=== PATIENT | female | born 1980 | race American Indian/Alaskan Native ===

== ENCOUNTER 2016-07-31 05:53 | Day surgery (SDC) | payer MEDICARE ==
[~2016-07-31 05:53] MED LIST: ANCEF/STERILE WATER 2 GM/20 ML 2 GM/20 ML SYRINGE IV NR; LOVENOX SUB-Q NR; TRANSDERM-SCOP TD SCH
[2016-07-31] MEDS ORDERED: LACTATED RINGERS 1,000 ML IV SCH (06:00)
[2016-07-31] MEDS ORDERED: ANCEF/STERILE WATER 2 GM/20 ML 2 GM/20 ML SYRINGE IV NR (06:00)
[2016-07-31] MEDS ORDERED: PEPCID IV NR (06:00)
[2016-07-31] MEDS ORDERED: LOVENOX SUB-Q NR (06:00)
[2016-07-31] MEDS ORDERED: VERSED IV NR (06:00)
[2016-07-31] MEDS ORDERED: TRANSDERM-SCOP TD SCH (06:00)
[2016-07-31] MEDS ORDERED: NACL BACTERIOSTATIC INFILTRATI ONE (06:13)
[2016-07-31] MEDS ORDERED: ZEMURON IV ONE (06:29)
[2016-07-31] MEDS ORDERED: XYLOCAINE MPF 2% ONE (06:31)
[2016-07-31] MEDS ORDERED: NEOSTIGMINE ONE (06:32)
[2016-07-31] MEDS ORDERED: ROBINUL ONE (06:32)
[2016-07-31] MEDS ORDERED: DILAUDID ONE (06:33)
[2016-07-31] MEDS ORDERED: DIPRIVAN 10 MG/ML IV ONE (06:33)
[2016-07-31 06:39] LABS: Eosinophils % (Auto) 1.6 % (0.0-4.3); Hematocrit 39.3 % (30.3-42.9); Mean Corpuscular HGB Conc 33 % (30-34); Mean Corpuscular Hemoglobin 30 pg (28-32); Mean Corpuscular Volume 90 fl (79-97); Red Blood Count 4.38 M/mm3 (3.65-5.03); Red Cell Distribution Width 13.4 % (13.2-15.2); White Blood Count 7.1 K/mm3 (4.5-11.0)
[2016-07-31 06:43] LABS: Platelet Count 178 K/mm3 (140-440)
--- NOTE | 2016-07-31 09:57 | Event Note ---
Date: 07/31/16 35 yo BF with history of marijuana use and obesity presented today for umbilical hernia repair. Patient reports having dizziness, chest pain radiating to left neck and arm on and off for the last 5 months. Recently seen by primary care physician and was attributed to anxiety. EKG appears normal but patient still having symptoms. Would like for patient to have cardiac clearance before undergoing surgery. Patient will go today to see Dr. Jensen at [facility]. If cleared then would proceed with surgery. Discussed with Dr. Marie.
[2016-07-31 10:09] LABS: Anion Gap 19 mmol/L; BUN/Creatinine Ratio 14.28; Blood Urea Nitrogen 10 mg/dL (7-17); Calcium 8.8 mg/dL (8.4-10.2); Carbon Dioxide 21 mmol/L (22-30); Chloride 101.1 mmol/L (98-107); Glucose 96 mg/dL (65-100); Sodium 137 mmol/L (137-145)
== END 2016-07-31 09:49 | disposition home or self-care (01) ==
LOC: OR 05:53
PROVIDERS: ATTEND Surgery
DX: K42.9 Umbilical hernia without obstruction or gangrene (principal); Z53.8 Procedure and treatment not carried out for other reasons; R07.9 Chest pain, unspecified; R42 Dizziness and giddiness; F12.90 Cannabis use, unspecified, uncomplicated; F17.210 Nicotine dependence, cigarettes, uncomplicated; F41.9 Anxiety disorder, unspecified; E66.9 Obesity, unspecified; Z68.37 Body mass index [BMI] 37.0-37.9, adult
CPT/HCPCS: 36415; 80048; 81025; 85025; J7120; J0690; J1170; J1650; J2250; J2704; J2710